=== PATIENT | male | born 1955 | race Caucasian/White ===

== ENCOUNTER 2016-04-25 11:45 | Emergency (ER) | payer OTHER ==
[2016-04-25 12:04] VITALS: BMI 28.8
[2016-04-25 12:08] VITALS: BP 170/96; PULSE 73; RESP 18; TEMP 98.5; O2SAT 97
--- NOTE | 2016-04-25 12:36 | ED PDOC ---
Arrival/HPI - General Historian: Patient <Kat Espinoza - Last Filed: 04/25/16 20:08> <Iris Fisher - Last Filed: 04/30/16 07:07> - General Chief Complaint: Lower Extremity Problem/Injury Time Seen by Provider: 04/25/16 12:26 - History of Present Illness Narrative History of Present Illness (Text): 04/25/16 12:32 60yr old male presents today with left knee pain and swelling x 3 days. pt denies any recent trauma or injury. pt with hx of knee injury in the past. no fever/chills. pt states he applied warm compresses to knee without improvement. pt c/o pain with ambulation and full flexion of knee. pt states pain is located to the lateral aspect of the knee. took advil for pain without improvement. denies numbness, weakness,tingling in the extremity. (Kat Espinoza) Past Medical History - Provider Review Nursing Documentation Reviewed: Yes - Travel History Have you recently traveled outside [place] w/in the past 3 mons?: No - Infectious Disease Hx of Infectious Diseases: None - Tetanus Immunization Tetanus Immunization: Unknown - Cardiac Hx Cardiac Disorders: Yes (SVT.) Hx Cardiac Arrhythmia: Yes (afib with RVR) - Pulmonary Hx Respiratory Disorders: No - Neurological Hx Neurological Disorder: No - HEENT Hx HEENT Disorder: No - Renal Hx Renal Disorder: No - Endocrine/Metabolic Hx Endocrine Disorders: No - Hematological/Oncological Hx Blood Transfusions: No Hx Blood Transfusion Reaction: No - Integumentary Hx Dermatological Disorder: No - Musculoskeletal/Rheumatological Hx Musculoskeletal Disorders: No - Gastrointestinal Hx Gastrointestinal Disorders: No - Genitourinary/Gynecological Hx Genitourinary Disorders: No - Psychiatric Hx Psychophysiologic Disorder: No Hx Substance Use: No - Past Surgical History Past Surgical History: No Previous - Surgical History Other/Comment: Nasal poly resection 10 years ago. - Anesthesia Hx Anesthesia Reactions: No Hx Malignant Hyperthermia: No <Kat Espinoza - Last Filed: 04/25/16 20:08> Family/Social History - Physician Review Nursing Documentation Reviewed: Yes Family/Social History: Unknown Family HX Smoking Status: Light Smoker < 10 Cigarettes Daily Hx Alcohol Use: No Hx Substance Use: No <Kat Espinoza - Last Filed: 04/25/16 20:08> Allergies/Home Meds <Kat Espinoza T - Last Filed: 04/25/16 20:08> <Iris Fisher - Last Filed: 04/30/16 07:07> Allergies/Adverse Reactions: Allergies No Known Allergies Allergy (Verified 11/06/13 02:03) Review of Systems - Review of Systems Constitutional: absent: Fatigue, Fevers Respiratory: absent: SOB, Cough Cardiovascular: absent: Chest Pain, Palpitations Gastrointestinal: absent: Abdominal Pain, Nausea, Vomiting Genitourinary Male: absent: Dysuria Musculoskeletal: Arthralgias, Joint Swelling. absent: Back Pain, Neck Pain Skin: absent: Rash, Pruritis Neurological: absent: Headache, Dizziness Psychiatric: absent: Anxiety, Depression <Kat Espinoza - Last Filed: 04/25/16 20:08> Physical Exam Vital Signs Reviewed: Yes Temperature: Afebrile Blood Pressure: Hypertensive Pulse: Regular Respiratory Rate: Normal Appearance: Positive for: Well-Appearing, Non-Toxic, Comfortable Pain Distress: None Mental Status: Positive for: Alert and Oriented X 3 - Systems Exam Head: Present: Atraumatic Mouth: Present: Moist Mucous Membranes Neck: Present: Normal Range of Motion Respiratory/Chest: Present: Clear to Auscultation, Good Air Exchange. No: Respiratory Distress, Accessory Muscle Use Cardiovascular: Present: Regular Rate and Rhythm, Normal S1, S2. No: Murmurs Lower Extremity: Present: NORMAL PULSES, Tenderness (left knee; + swelling over anterior knee, no erythema; no warmth; decreased flexion. + active and passive rom of knee. + ttp over left lateral joint line. sensation and distal pulses intact. cap refill <2. ), Swelling, Neurovascularly Intact, Capillary Refill < 2 s. No: CALF TENDERNESS, Normal ROM, Erythema Neurological: Present: GCS=15, Speech Normal Skin: Present: Warm, Dry, Normal Color. No: Rashes Psychiatric: Present: Alert, Oriented x 3 <Kat Espinoza - Last Filed: 04/25/16 20:08> Vital Signs Temp Pulse Resp BP Pulse Ox 04/25/16 12:06 98.5 F 73 18 170/96 H 97 Medical Decision Making <Kat Espinoza T - Last Filed: 04/25/16 20:08> <Iris Fisher - Last Filed: 04/30/16 07:07> ED Course and Treatment: 04/25/16 12:37 Patient nontoxic well-appearing in no distress with stable vital signs X-rays of the knee: no fracture toradol IM Patient placed in knee immobilizer. Crutches given for ambulation I discussed all results with patient advised to followup with the orthopedist for the next 2 days. Return if symptoms worsen persist or new symptoms develop: high fever, increasing pain, redness, swelling or if any other concerning symptoms develop. i advised the patient that although the xrays show no fracture; there is still a possibility for ligamentous or tendon injury the patient must see the orthopedist for further evaluation. Patient verbalizes understanding of discharge instructions and need for immediate followup. all aspects of this case were discussed the attending of record. Impression: knee pain, knee effusion Motrin every 6 hours as needed for pain percocet; 1 tablet every 6 hours as needed for moderate to severe pain; may cause drowsiness. Rest, ice, compression, elevation Use crutches for ambulation Followup with the orthopedist within the next 2 days Followup with primary care physician within the next 2 days Return if symptoms worsen persist or if new symptoms develop (Kat Espinoza) 04/30/16 07:05 Xray shows osteoarthritis with small joint effusion. Patient was examined by me and exam shows mildly swollen L knee with normal ROM. No erythema or warmth. No risk factors for septic joint, including no DM and no IVDA. No complaint of fever. Patient has previous hx of ligamentous injury to other knee and reports that this feels similar. Patient was given strict return instructions to return with any worsening of symptoms and he was instructed to follow-up with PMD and ortho for further definitive testing/imaging. (Iris Fisher) - RAD Interpretation Radiology Orders: 04/25/16 12:27 KNEE LEFT 2 VIEWS (AP & LAT) [RAD] Stat - Medication Orders Current Medication Orders: Discontinued Medications Ketorolac Tromethamine (Toradol) 60 mg IM STAT STA Stop: 04/25/16 12:38 Last Admin: 04/25/16 13:08 Dose: 60 MG IM Administration Charges Document 04/25/16 13:08 [facility] (Rec: 04/25/16 13:08 [facility]-[id number]) Injection Site MAR Injection Site Left Deltoid Charges for Administration # of IM Administrations 1 - PA / SALES DEVELOPMENT DIRECTOR / Resident Statement MD/DO has examined the patient and agrees with the treatment plan. <Iris Fisher - Last Filed: 04/30/16 07:07> Disposition/Present on Arrival - Present on Arrival Any Indicators Present on Arrival: No History of DVT/PE: No History of Uncontrolled Diabetes: No Urinary Catheter: No History of Decub. Ulcer: No History Surgical Site Infection Following: None - Disposition Have Diagnosis and Disposition been Completed?: Yes Disposition Time: 13:35 Patient Plan: Discharge <Kat Espinoza - Last Filed: 04/25/16 20:08> <Iris Fisher - Last Filed: 04/30/16 07:07> - Disposition Diagnosis: Knee pain, Knee effusion, left Disposition: HOME/ ROUTINE Condition: GOOD Discharge Instructions (ExitCare): Swollen Knee Joint (ED) Additional Instructions: Motrin every 6 hours as needed for pain percocet; 1 tablet every 6 hours as needed for moderate to severe pain; may cause drowsiness. Rest, ice, compression, elevation Use crutches for ambulation Followup with the orthopedist within the next 2 days Followup with primary care physician within the next 2 days Return if symptoms worsen persist or if new symptoms develop Prescriptions: Ibuprofen [Motrin] 600 mg PO Q6H PRN #20 tab PRN Reason: pain/fever reduction oxyCODONE/Acetaminophen [Percocet 5/325 mg Tab] 1 tab PO Q6H PRN #10 tab PRN Reason: moderate to severe pain Referrals: Thomas Miller MD [Staff Provider] - Follow up with primary [facility] [Outside] - Follow up with primary Forms: WORK NOTE
--- NOTE | 2016-04-25 15:03 | RAD ---
PROCEDURE: Left Knee Radiographs. HISTORY: Pain. COMPARISON: None. FINDINGS: BONES: Normal. No fracture. JOINTS: Mild medial and patellofemoral osteoarthritis. No articular erosion. JOINT EFFUSION: Small joint effusion. OTHER FINDINGS: None. IMPRESSION: Medial and patellofemoral osteoarthritis with small joint effusion. No acute fracture.
== END 2016-04-25 13:55 | disposition home or self-care (01) ==
LOC: ED 11:45
DX: M25.562 Pain in left knee (principal); M25.462 Effusion, left knee; F17.210 Nicotine dependence, cigarettes, uncomplicated; I48.91 Unspecified atrial fibrillation
CPT/HCPCS: 29530; 73560; 96372; 99284; J1885